=== PATIENT | female | born 1980 | race Caucasian/White ===

== ENCOUNTER 2021-07-24 09:30 | Outpatient (CLI) | payer BC, SELFPAY ==
--- NOTE | 2021-07-24 09:36 | FL_ITS ---
WS: [id number] Limited UPPER GI EXAMINATION HISTORY: Z98.84 - Bariatric surgery status COMPARISON: None available. FLUOROSCOPY TIME: 2.6 minutes. Barium traveled through the esophagus to the GE junction. Tertiary contractions at the GE junction wi th mild delay in emptying through the gastric band. Normal orientation of the gastric banding. Althou gh slight delay the esophagus does empty into the stomach through the gastric band. There is delayed emptying from the stomach this is due to upright position. Unable to lay the patient supine due to we ight limit of the table. No reflux was demonstrated. No hernia. FL/FL upper GI w air* [id number] IMPRESSION: 1. Normal orientation of the gastric band. 2. Distal tertiary esophageal contractions with very minimal delay in emptying through the gastric band.
== END 2021-07-24 09:31 | disposition home or self-care (01) ==
PROVIDERS: Visit Provider Surgery
DX: Z98.84 Bariatric surgery status (principal)
CPT/HCPCS: 74246

== ENCOUNTER → 2021-08-07 08:48 | Outpatient (BNVA) | payer BC, MEDICAID, SELFPAY | PROVIDERS: Visit Provider Surgery | DX: Z20.822 Contact with and (suspected) exposure to COVID-19 (principal) | CPT/HCPCS: 87635 ==

== ENCOUNTER 2021-08-12 06:18 | Day surgery (SDC) | payer BC, MEDICAID, SELFPAY ==
[2021-08-11 09:27] VITALS: BMI 61.3
[2021-08-12 06:50] VITALS: BP 149/103; PULSE 69; RESP 20; TEMP 36.8; O2SAT 97
--- NOTE | 2021-08-12 07:03 | ANES.PREANE2 ---
Pre-Anesthetic Assessment Pre-Anesthetic Assessment: Height/Weight: Height 1.68 m Weight 172.365 kg Temp Pulse Resp BP Pulse Ox 98.2 F 69 20 H 149/103 97 08/12/21 06:50 08/12/21 06:50 08/12/21 06:50 08/12/21 06:50 08/12/21 06:50 Preop Diagnosis: History of adjustable gastric BAND Proposed Procedure: Operation Date: 08/12/21 07:45 Proposed Procedures p EGD [id number] Z98.84(Not Applicable) - Dread Gerber MD s Gastric Band Adjustment(Not Applicable) - Dread Gerber MD Was Beta Ilana taken within 24 hours: Yes Was Clonidine taken within 24 hours: N/A Social: Social History: No tobacco Exam: Pre-Anes Outpt Exam: alert, oriented x 3, clear to auscultation bilaterally and regular rate & rhythm Airway: Submandibular: WNL Cervical ROM: WNL MP: 3 History/ROS: No significant complaints Metabolic: Metabolic: Morbid obesity Neuropsych: Neuropsych: KIRBY Comments: Migraines Anesthetic Plan: ASA status: 3 Anesthesia: Anesthesia Evaluation and General Risk of > 500 ml blood loss (7ml/kg in children): No PFSH Anesthesia PFSH: Medical History BMI 60.0-69.9, adult Morbid obesity Surgical History (Updated 08/11/21 @ 09:25 by Azucena Mccormack RN) Hx of laparoscopic gastric banding (~2011) Family History Denies family history of Anesthesia complication Bleeding disorder Social History Smoking and tobacco status: never smoked Data Anesthesia Cardiac Studies: No Data to Display
[2021-08-12 07:39] LABS: OR HCG Qualitative Urine Negative (Negative)
[2021-08-12] MEDS: sodium chloride 0.9% 1,000 ML 30 ML IV (07:43)
--- NOTE | 2021-08-12 07:48 | W.PM.OPSFHP ---
Same Day Surgery H&P Indication for Procedure/HPI DATE OF PROCEDURE: August 12, 2021 CHIEF COMPLAINT/INDICATIONFOR SURGICAL PROCEDURE: Issues with the band PREOP DIAGNOSIS: History of adjustable gastric BAND PLANNED PROCEDRUE: Operation Date: 08/12/21 07:45 Proposed Procedures p EGD [id number] Z98.84(Not Applicable) - Dread Gerber MD s Gastric Band Adjustment(Not Applicable) - Dread Gerber MD 06/25/2021 This is a pleasant 40 years old female patient referred to my practice with history of laparoscopic adjustable gastric band in [facility]. That was placed back in 2011 with initial weight 320 pounds she lost 100 pounds and regained more than 100, current weight 399 pounds and a BMI of 64.3. Patient reports that she has been struggling with her weight, last time her band was adjusted about 3 years ago and reports no fluids. Also she had an upper GI study about 3 years ago. Patient continues to struggle with her weight and she is interested in converting her gastric band to gastric bypass. BMI 64.3 Obesity related comorbidities history of hypertension and depression Previous Bariatric surgery-------- laparoscopic adjustable gastric band Patient's quality of life affected in a nonpositive way Patient has been struggling with weight and has tried different modalities without obvious success, patient comes today showing interest in revisionAL bariatric surgery as a sustained option for obesity management. 08/12/2021 Patient comes today for diagnostic EGD and adjustment of gastric band as she has been having relatively complications related to gastric band adjustment and she has been having regaining of weight due to that. ROS All systems have been reviewed negative except as per the above or per problem list Medications/Allergies* Home Medications Medication Instructions Recorded Confirmed Type bupropion HCl 300 mg 24 hr tablet, 300 mg PO QAM 06/25/21 08/12/21 History extended release escitalopram oxalate 10 mg tablet 10 mg PO DAILY 06/25/21 08/12/21 History furosemide 20 mg tablet 20 mg PO DAILY 06/25/21 08/12/21 History metoprolol succinate 50 mg 50 mg PO DAILY 06/25/21 08/12/21 History tablet,extended release 24 hr potassium chloride 10 mEq 10 meq PO DAILY 06/25/21 08/12/21 History capsule,extended release tizanidine 4 mg capsule 4 mg PO BID 06/25/21 08/12/21 History topiramate 25 mg capsule 25 mg PO DAILY 06/25/21 08/12/21 History sprinkle,extended release 24 hr pregabalin [Lyrica] 300 mg PO BID 08/12/21 08/12/21 History Allergies/Adverse Reactions Allergy/AdvReac Type Severity Reaction Status Date / Time No Known Allergies Allergy Unverified 08/11/21 09:24 Current Medications: Generic Name Dose Route Start Last Admin Trade Name Freq PRN Reason Stop Dose Admin Sodium Chloride 1,000 mls @ 30 mls/hr 08/12/21 07:00 08/12/21 07:43 Sodium Chloride 0.9% IV 08/13/21 06:59 30 mls/hr .Q24H ESPINOZA Administration Pertinent History/Comorbid Conditions* Medical History (Updated 06/27/21 @ 12:56 by Dread Gerber MD) BMI 60.0-69.9, adult Morbid obesity Surgical History (Updated 06/27/21 @ 12:56 by Dread Gerber MD) Hx of laparoscopic gastric banding (~2011) Family History (Updated 06/25/21 @ 14:32 by Abbi Akins RN) Denies family history of Anesthesia complication Bleeding disorder Social History Smoking and tobacco status: never smoked Pertinent Exam Findings alert, oriented x 3, clear to auscultation bilaterally, regular rate & rhythm and procedure specific exam findings (Abdominal examination nontender nondistended soft morbidly obese) Port is palpable at the epigastric area yet patient reports that she had a pop out about a week and a half ago, likely the suture attaching the port in place as I was able to feel and not on top of the port. Recommendations Surgery/Procedure today (Diagnostic EGD with possible biopsy and gastric band adjust) Other Plans: Plan of care; After thorough history and physical examination and reviewing the chart, plan to perform a diagnostic esophagogastroduodenoscopy with possible biopsy and adjustment of the gastric band port in the OR. I discussed with the patient in detail the risk,benefits,alternatives and indications.The risk of aspiration, bleeding, soft tissue injury, perforation of the stomach/esophagus and other potential concomitant complications were explained to the patient in details,aslo the potential need for Thoracic and or Abdominal surgery to repair any complications.The patient understood this well and did agree to proceed. Rationale was carefully and clearly discussed with the patient.Appropriate informed consent have been reviewed and signed All questions have been answered and all concerns have been addressed to patient's satisfaction. Coding Level of Care Code Acute Front Line Supervisor for Michelle Carrillo
[2021-08-12] MEDS: lidocaine 2% INJ 20 mL INJECTION (08:12)
[2021-08-12 08:21] LABS: Blood Urea Nitrogen 9 mg/dL (6-20); Carbon Dioxide 23 mmol/L (22-29); Chloride 106 mmol/L (98-107); Glomerular Filtration Rate 92.2 mL/min (90-130); Glucose 100 mg/dL (65-115); Osmolality Calculated 289 mOsm/kg (285-295); Sodium 140 mmol/L (136-145)
[2021-08-12 08:22] LABS: Anion Gap 15.2 (5-19); Potassium 4.2 mmol/L (3.5-5.1)
--- NOTE | 2021-08-12 08:28 | P.OP_ITS ---
Operative Report Date of procedure: August 12, 2021 Pre-op Diagnosis: History of adjustable gastric BAND Post-op diagnosis: same Post-op Findings: 0.2 mL of fluid per adjustment of gastric band GERD 37 centimeter Gastric band located at 40 cm without erosions Prepyloric gastritis Procedure Done: 1-Adjustment of gastric band 2-Esophagogastroduodenoscopy with biopsy Specimens removed/disposition: Antral biopsy to rule out H. pylori infection Surgeon: Dread Gerber Design Manager: Surgical techcorine Diaz and surgical aide student [employer] [facility] tech Eve Pedraza Circulating nurse Génesis Kitchen Anesthesia: MAC (elementary classroom teacher Rand) Estimated blood loss (mL): 0 Condition: stable Disposition: same day Procedure: Patient was identified in holding area, was taken to the operating room and was placed in supine position \Time-out was done verifying the patient's name,all were in agreement After prep and drape of the upper abdomen under sterile technique, I used a long Shaw needle, I was able to aspirate about 0.2 mL of fluid from the port.A Band- Aid was applied onto the site of introduction of the Shaw needle, were no complications. Patient was then placed in left lateral position and IV propofol was infused by the anesthesia provider, a bite block was placed to protect patient's oral cavity followed by introduction of diagnostic EGD via the mouth all the way to the second part of the duodenum. Patient continuously monitored with awake overnight monitor. GE junction was at 37 cm from the incisors with some esophagitis changes up to 36 cm grade I esophagitis. The gastric band located at 40 cm from the incisors without erosions. Prepyloric gastritis mild were seen and antral biopsy was done by cold forceps and sent for pathology to rule out H. pylori infection. Rest of the examination was within normal limits. Patient tolerated the procedure well And was taken to the recovery area in stable condition I was present for the whole entire procedure
[2021-08-12 08:31] VITALS: BP 127/59; PULSE 70; RESP 18; TEMP 36.3; O2SAT 95
[2021-08-12 08:41] VITALS: BP 125/86; PULSE 73; RESP 18; TEMP 36.1; O2SAT 97
[2021-08-12 09:07] VITALS: BP 141/85; PULSE 62; RESP 17; O2SAT 100
--- NOTE | 2021-08-12 11:37 | ANE.PACU2 ---
Inpatient post-anesthesia follow up: Airway intact: Yes Vital signs: Temperature 96.9 F Pulse Rate 62 Respiratory Rate 17 Blood Pressure 141/85 Pulse Oximetry 100 Oxygen Delivery Me thod Room Air Oxygen Flow Rate Fraction of Inspir ed Oxygen Hydration adequate: Yes Nausea and vomiting: No Pain level: 3 Mental status: Baseline
== END 2021-08-12 09:10 | disposition home or self-care (01) ==
PROVIDERS: Anesthesiology; PCP Nurse Practitioner; Visit Provider Surgery
PROC: 0DJ08ZZ Inspection of Upper Intestinal Tract, Via Natural or Artificial Opening Endoscopic (ICD-10-PCS; CPT 43235; principal; 2021-08-12 07:45)
PROC: (CPT 43999; 2021-08-12 07:45)
DX: Z46.51 Encounter for fitting and adjustment of gastric lap band (principal); K29.50 Unspecified chronic gastritis without bleeding; E66.01 Morbid (severe) obesity due to excess calories; Z68.44 Body mass index [BMI] 60.0-69.9, adult; I10 Essential (primary) hypertension; F32.A Depression, unspecified
CPT/HCPCS: 43239; 43999; 80048; 84703; 88305; J2704; J3010; J7030